=== PATIENT | male | born 1940 | race Caucasian/White ===

== ENCOUNTER 2023-04-26 13:43 | Emergency (ER) | payer OTHER ==
[~2023-04-26] VITALS: Ht 182.9 cm; Wt 90.9 kg
[2023-04-26 15:15] VITALS: PULSE 67; RESP 15; O2SAT 95
[2023-04-26] MEDS ORDERED: SODIUM CHLORIDE 0.9% 500 ML IVB ONE (16:15)
[2023-04-26] MEDS ORDERED: SODIUM CHLORIDE 0.9% 1,000 ML IV ONE (16:15)
[2023-04-26 17:01] LABS: Basophils # (auto) 0 10 ^3/uL (0-0.2); Basophils % (auto) 0.2 % (0.0-2.0); Eosinophils # (auto) 0 10 ^3/uL (0-0.8); Eosinophils % (auto) 0.4 % (0.0-7.0); Hematocrit 36.2 % (41.0-53.0); Hemoglobin 12.1 g/dL (13.5-17.5); Lymphocytes # (auto) 2.2 10 ^3/uL (0.4-5.4); Lymphocytes % (auto) 34.1 % (10.0-50.0); Mean Corpuscular Hemoglobin 32.1 pg (28.0-32.0); Mean Corpuscular Hgb Conc. 33.4 g/dL (32.0-36.0); Mean Corpuscular Volume 96.4 fL (80.0-100.0); Monocytes # (auto) 0.3 10 ^3/uL (0-1.3); Monocytes % (auto) 5.2 % (0.0-12.0); Neutrophils # (auto) 3.9 10 ^3/uL (1.6-8.6); Neutrophils % (auto) 60.1 % (37.0-80.0); Red Blood Cells 3.76 10^6/uL (4.5-5.90); Red Cell Distribution Width 16.6 % (11.8-14.3); White Blood Cell 6.4 10^3/uL (4.4-10.8)
[2023-04-26 17:25] LABS: Alanine Aminotransferase 19 U/L (7-40); Albumin 4.2 g/dL (3.2-4.8); Alkaline Phosphatase 50 U/L (46-116); Anion Gap 7 (5-15); Aspartate Aminotransferase 27 U/L (13-40); BUN/Creatinine Ratio 28.3 (10.0-20.0); Bilirubin, Total 0.6 mg/dL (0.2-1.0); Blood Urea Nitrogen 15 mg/dL (9-23); Calcium 8.7 mg/dL (8.7-10.4); Carbon Dioxide 26 mmol/L (20-30); Chloride 108 mmol/L (98-107); Glucose 116 mg/dL (74-106); Magnesium 1.7 mg/dL (1.6-2.6); Potassium 3.6 mmol/L (3.5-5.1); Sodium 141 mmol/L (136-145); Total Protein 6.5 g/dL (5.7-8.2)
[2023-04-26 19:24] LABS: Urine Amorphous Crystal FEW /hpf (None Seen); Urine Bacteria FEW /hpf (None Seen); Urine Blood Negative /uL (Negative); Urine Clarity HAZY (Clear); Urine Color Yellow (Yellow); Urine Mucus FEW (None Seen); Urine Protein, UAD 1+ (Negative); Urine Specific Gravity 1.028 (1.001-1.035); Urine WBC 23 /hpf (0 - 3)
[2023-04-26] MEDS ORDERED: NITR-87 PO (19:42)
[2023-04-26 19:45] VITALS: BP 111/81; TEMP 98.8
[2023-04-26 19:53] VITALS: PULSE 75; RESP 13; O2SAT 94
== END 2023-04-26 20:25 | disposition home or self-care (01) ==
LOC: ER 13:43 → EDBD 13:43 → EDUNIT# 13:43 → ER 20:15
DX: S01.81XA Laceration without foreign body of other part of head, initial encounter (principal); S51.811A Laceration without foreign body of right forearm, initial encounter; G30.1 Alzheimer's disease with late onset; F02.80 Dementia in other diseases classified elsewhere, unspecified severity, without behavioral disturbance, psychotic disturbance, mood disturbance, and anxiety; I10 Essential (primary) hypertension; E11.9 Type 2 diabetes mellitus without complications; E78.5 Hyperlipidemia, unspecified; F17.210 Nicotine dependence, cigarettes, uncomplicated; Z85.9 Personal history of malignant neoplasm, unspecified; Z87.442 Personal history of urinary calculi; Z79.899 Other long term (current) drug therapy; W18.39XA Other fall on same level, initial encounter; Y93.89 Activity, other specified; Y92.098 Other place in other non-institutional residence as the place of occurrence of the external cause; Y99.8 Other external cause status
CPT/HCPCS: 36415; 70450; 71045; 80053; 81001; 83735; 85025; 96360; 96361; 99285; J7030